=== PATIENT | male | born 1970 | race African-American/Black ===

== ENCOUNTER 2016-06-06 17:36 | Emergency (ER) | payer MEDICARE ==
[~2016-06-06] VITALS: Ht 182.9 cm; Wt 83.9 kg
[2016-06-06 18:00] VITALS: BP 144/83
[2016-06-06] MEDS ORDERED: ACETAMINOPHEN 325 MG TABLET PO ONE (19:00)
[2016-06-06] MEDS ORDERED: ACETAMINOPHEN ES 500 MG TABLET ONE (20:56)
== END 2016-06-06 21:05 | disposition home or self-care (01) ==
LOC: ER 17:39
DX: S39.012A Strain of muscle, fascia and tendon of lower back, initial encounter (principal); I10 Essential (primary) hypertension; V89.2XXA Person injured in unspecified motor-vehicle accident, traffic, initial encounter; Y93.89 Activity, other specified; Y92.89 Other specified places as the place of occurrence of the external cause; Y99.9 Unspecified external cause status
CPT/HCPCS: 72100-TC; A4606; Z7610